=== PATIENT | female | born 1990 | race African-American/Black ===

== ENCOUNTER 2018-08-17 17:49 | Emergency (ER) | payer BC, OTHER ==
--- NOTE | 2018-08-17 18:03 | PDOC ---
Rapid Medical Evaluation Medical Evaluation: Allergies Allergy/AdvReac Type Severity Reaction Status Date / Time No Known Allergies Allergy Verified 12/15/14 20:16 I have performed a brief in-person evaluation of this patient. The patient presents with a chief complaint of: Fell off ladder (unsure of length but had 10 steps); landed on both knees; denies LOC, head/neck trauma Pertinent physical exam findings: Patient ambulatory in triage; no obvious trauma noted The patient will proceed to the ED for further evaluation. 08/17/18 17:59
[2018-08-17 18:04] VITALS: BP 134/84; PULSE 80; TEMP 98.4; BMI 32.5
--- NOTE | 2018-08-17 18:22 | PDOC ---
History of Present Illness - General Chief Complaint: Pain, Acute Stated Complaint: FALL/INJURY Time Seen by Provider: 08/17/18 18:11 History Source: Patient Exam Limitations: No Limitations - History of Present Illness Initial Comments: Patient is a 27-year-old female who states that she was hanging holiday lights and was on a ladder approximately 8 feet in the air and she lost her balance and landed on her feet however has bilateral knee pain. She denies hitting her head and denies loss of consciousness. She denies neck or back pain. She denies pelvic/hip pain. Patient describes the pain as a throb, worse with bending her knees and and ambutaing and rates it at a 3 out of 10. Patient has a previous meniscus injury to the left knee which she has not had surgery on at present. She denies LE paresthesia. Patient denies any relieving factors. 08/17/18 18:18 Past History - Travel Traveled outside of the country in the last 30 days: No Close contact w/someone who was outside of country & ill: No - Past Medical History Allergies/Adverse Reactions: Allergies Allergy/AdvReac Type Severity Reaction Status Date / Time No Known Allergies Allergy Verified 12/15/14 20:16 Home Medications: Ambulatory Orders No Home Medications 0 dose .ROUTE UTDICT 08/28/12 COPD: No Thyroid Disease: No - Immunization History Immunization Up to Date: Yes - Suicide/Smoking/Psychosocial Hx Smoking Status: No Smoking History: Never smoked Have you smoked in the past 12 months: No Number of Cigarettes Smoked Daily: 0 Hx Alcohol Use: No Drug/Substance Use Hx: No Substance Use Type: None Hx Substance Use Treatment: No Review of Systems - Review of Systems Able to Perform ROS?: Yes Constitutional: No: Chills, Fever Musculoskeletal: No: Back Pain, Muscle Pain All Other Systems: Reviewed and Negative *Physical Exam - Vital Signs Last Vital Signs Temp Pulse Resp BP Pulse Ox 98.4 F 80 16 134/84 98 08/17/18 18:00 08/17/18 18:00 08/17/18 18:00 08/17/18 18:00 08/17/18 18:00 - Physical Exam Comments: Constitutional: VS stated, pt appears in no apparent distress; ambulated to exam room. Skin: Warm and dry. Intact, no lesions or excoriations. Head: Normocephalic; atraumatic Eyes: conjunctiva pink without injection or discharge. Throat: Oropharynx with pink and moist mucosa. Lungs: Bilateral breath sounds clear upon auscultation. No adventitious breath sounds. Heart: Regular rate and rhythm, S1/S2 auscultated. No murmurs, rubs, or gallops. No visible pulsations, heaves, or lifts on precordium. Abdomen: Soft and non-tender. Bowel sounds present in all 4 quadrants, no hepatosplenomegaly, No bruits auscultated. No guarding or rebound. No masses or visible pulsations present. No suprapubic tenderness. No CVAT. No bruits. Musculoskeletal: Full ROM of TMJ without pain, tenderness, or crepitus. Normal curves of cervical, thoracic, and lumbar spine. Full ROM of cervical and lumbar spine. Proximal joints normal; neck, arms, hips, knees, and ankles with full range of active and passive motion. Muscles appear symmetric. Sensation intact medially and laterally. No saddle anesthesia. DTRs+2. No tenderness on palpation of spine. 5/5 strength in upper extremities and lower extremity groups. Focused on the knees bilaterally. No deformity. Patient can flex and extend without difficulty. Negative Wolf. Negative Yessi. Negative anterior drawer test. Pedal pulses present, cap refill less than 2 seconds, sensation intact. Neurologic: Awake, alert. Conversation fluent. Normal attention. Oriented to person, place, and time. Cranial nerves 1-12 intact. Gross sensory and motor strength intact; cerebellar function normal. Steady gait noted, deep tendon reflexes within normal range. 08/17/18 18:20 Moderate Sedation - Procedure Monitoring Vital Signs: Procedure Monitoring Vital Signs Temperature 98.4 F 08/17/18 18:00 Pulse Rate 80 08/17/18 18:00 Respiratory Rate 16 08/17/18 18:00 Blood Pressure 134/84 08/17/18 18:00 O2 Sat by Pulse Oximetry (%) 98 08/17/18 18:00 ED Treatment Course - RADIOLOGY Radiology Studies Ordered: Pt had bilateral knee xrays at the patient's request. They were reviewed by myself as negative. Category Date Time Status KNEE 4 POS-LEFT [RAD] Stat Radiology 08/17/18 18:16 Ordered KNEE 4 POS-RIGHT [RAD] Stat Radiology 08/17/18 18:16 Ordered 08/17/18 18:21 *DC/Admit/Observation/Transfer Diagnosis at time of Disposition: Knee sprain Qualifiers: Encounter type: initial encounter Involved ligament of knee: unspecified ligament Laterality: unspecified laterality Qualified Code(s): S83.90XA - Sprain of unspecified site of unspecified knee, initial encounter - Discharge Dispostion Disposition: HOME Condition at time of disposition: Stable Decision to Admit order: No - Referrals Referrals: Bonilla Penny MD [Staff Physician] - - Patient Instructions Printed Discharge Instructions: DI for Knee Sprain Additional Instructions: Take Ibuprofen 600 mg every 6 hours. F/U with your PCP or ortho - Post Discharge Activity
[2018-08-17] MEDS ORDERED: IBUPROFEN 600 MG TABLET (FP) PO ONE ×2 (19:26→19:32)
== END 2018-08-17 19:35 | disposition home or self-care (01) ==
LOC: JERFT 17:49
CPT/HCPCS: 73564-TC-LT-FY; 73564-TC-RT-FY; 84703; 99281-25